=== PATIENT | male | born 1965 | race Caucasian/White ===

== ENCOUNTER 2019-08-02 17:20 | Inpatient (IN) | payer MEDICARE ==
--- NOTE | 2019-08-02 17:26 | PDOC ---
Rapid Medical Evaluation Chief Complaint: Alcohol intoxication Time Seen by Provider: 08/02/19 17:25 Medical Evaluation: Allergies Allergy/AdvReac Type Severity Reaction Status Date / Time No Known Allergies Allergy Verified 12/13/13 18:39 08/02/19 17:25 I have performed a brief in-person evaluation of this patient. The patient presents with a chief complaint of: ETOH intox Pertinent physical exam findings: AOB. No focal deficits. I have ordered the following: nothing The patient will proceed to the ED for further evaluation. Discharge Disposition - Diagnosis Alcohol intoxication - Referrals - Patient Instructions - Post Discharge Activity
[2019-08-02] MEDS ORDERED: SODIUM CHLORIDE 0.9% 500 ML INFUS.BAG IV ONE (19:20)
[2019-08-02] MEDS ORDERED: FOLIC ACID INJECTION - 1 MG, THIAMINE HCL 100 MG, MULTIVIT INJECTION ADULT 10 ML in SOD... IVPB ONE (19:20)
--- NOTE | 2019-08-02 19:28 | PDOC ---
Attending Attestation - Resident Resident Name: TaneshaLivia - ED Attending Attestation I have performed the following: I have examined & evaluated the patient, The case was reviewed & discussed with the resident, I agree w/resident's findings & plan, Exceptions are as noted - HPI HPI: 08/02/19 20:39 54yo male with hx of etoh use. States for the last 2 weeks he has been drinking 12-18 drinks per day. Pt states he needs help stopping etoh use. Pt states he called [facility] and arranged for rehab placement for etoh use, but states he needs to go through detox before he will be accepted. Pt denies SI/HI. Pt denies tremors, but last drink was 4 hours ago. Pt states he feels anxious, but not tremulous. - Physicial Exam PE: 08/02/19 20:41 Gen: aaox3, smell of etoh on his breath heent: mmm, eomi, no tongue fasciculations heart: +s1s2 reg lungs: cta b/l abd: soft, nt/nd +bs ext: no tremors, no c/c/e - Medical Decision Making 08/02/19 20:23 I, Dr. Sherie Newberry, DO, attest that this document has been prepared under my direction and personally reviewed by me in its entirety. I further attest, that it accurately reflects all work, treatment, procedures and medical decision -making performed by me. a/p: 54yo male with etoh use requesting detox -pt has a plan for [facility] rehab after detox and has a bed available -pt requesting detox -las drink was 4 hours ago -drinks 12-18 beers a day -pt denies pain, no falls, no trauma -pt tachy, but no tongue fasciculations or tremors -will send labs, discuss with [facility], will monitor and reassess 08/02/19 20:43 drug screen neg cbc reviewed call placed to [facility] for bed placement 08/02/19 21:07 pt with elevated etoh, but otherwise medically clear to go to detox at [facility] 08/02/19 22:00 no beds available at [facility] pt with tachy and anxiety and etoh withdrawal will microblog [facility] [place] for admission 08/02/19 22:19 resident discussing case with [facility] who accepts pt to service Heart Score/ECG Review - ECG Intrepretation Comment:: 08/02/19 20:43 sinus at 91, nl axis, nl interval, pac, no acute st/t wave findings
[2019-08-02] MEDS ORDERED: chlordiazePOXIDE HCL 25 MG CAPSULE PO ONE ×2 (19:44→21:59)
--- NOTE | 2019-08-02 19:44 | PDOC ---
History of Present Illness - General Chief Complaint: Alcohol intoxication Stated Complaint: INTOXICATED Time Seen by Provider: 08/02/19 17:25 - History of Present Illness Initial Comments: Bryson Guerrero is a 54yo man with no known medical history who presents requesting detox from alcohol. He admits to being intoxicated currently, reporting that he has had "about a 12 pack" of beer today, most recently about 4 -5pm today. He says that he drinks beer "constantly, 20/06" for many years. He used to also use marijuana and cocaine but states that he has not done so for about 5 years. Mr Guerrero reports that he was accepted at rehab at [facility] but was told that he needs to complete detox first for at least 3 days. He endorses shaking and anxiety if he does not drink, but he denies ever having a seizure or hallucinations. Past History - Past Medical History Allergies/Adverse Reactions: Allergies Allergy/AdvReac Type Severity Reaction Status Date / Time No Known Allergies Allergy Verified 08/02/19 17:26 Home Medications: Ambulatory Orders NK [No Known Home Medication] 12/13/13 Anemia: No Asthma: No Cancer: No Cardiac Disorders: No CVA: No COPD: No CHF: No Dementia: No Diabetes: No GI Disorders: No Disorders: No HTN: Yes (no med) Hypercholesterolemia: No Kidney Stones: No Liver Disease: No Seizures: Yes (alcohol related) - Reproductive History Testicular Surgery: No - Suicide/Smoking/Psychosocial Hx Smoking History: Current every day smoker Have you smoked in the past 12 months: Yes Number of Cigarettes Smoked Daily: 10 Cigars Per Day: 0 Information on smoking cessation initiated: No 'Breaking Loose' booklet given: 12/13/13 Hx Alcohol Use: No Drug/Substance Use Hx: No Substance Use Type: Alcohol Hx Substance Use Treatment: No Review of Systems - Review of Systems Comments:: General: No fevers, no chills, no weight or appetite change, no malaise HEENT: No changes in vision, no changes in hearing, no congestion, no sore throat CV: No chest pain, no palpitations, no LE edema Pulm: No SOB, no cough, no wheezing GI: No nausea or vomiting, no change in bowel habits, no melena : No frequency, no urgency, no dysuria Musc: No back pain, no joint swelling, no recent injury Skin: No rash, no lesions, no erythema Endo: No excessive thirst, no heat/cold intolerance Heme: No unusual bruising or bleeding, no swollen glands Neuro: No syncope, no numbness/tingling, no focal weakness Vasc: No claudication Psych: No recent change in mood, no SI or HI *Physical Exam - Vital Signs Last Vital Signs Temp Pulse Resp BP Pulse Ox 98.2 F 103 H 19 177/113 H 97 08/02/19 17:24 08/02/19 17:24 08/02/19 17:24 08/02/19 17:24 08/02/19 17:24 - Physical Exam Comments: General: Comfortable, no acute distress, smells of alcohol HEENT: PERRL, EOMI, MMM, voice normal, atraumatic Cards: RRR, no murmur appreciated Pulm: Comfortable on room air, clear to auscultation bilaterally Abd: Soft, nontender, nondistended Ext: Atraumatic. No LE edema. ROM intact. WWP Skin: Normal color, no rashes or lesions Neuro: A&Ox3, CN grossly intact, normal speech, motor/sensory grossly intact and symmetric. No tremor. No focal deficits Psych: Mood appropriate to situati ED Treatment Course - LABORATORY CBC & Chemistry Diagram: 08/02/19 19:30 08/02/19 19:30 - RADIOLOGY Radiology Studies Ordered: Category Date Time Status CHEST PA & LAT [RAD] Stat Radiology 08/02/19 19:19 Ordered Medical Decision Making - Medical Decision Making 08/02/19 19:38 Bryson Guerrero is a 54yo man with no known medical history who presents requesting detox from alcohol. He reports drinking at least 12 beers daily for "many years" with tremors and anxiety if he does not drink. - Appears acutely intoxicated - Will most likely need admission for medical detox, but does not appear to be acutely withdrawing at this time - CBC, CMP, UA, UDS, alcohol level, EKG, CXR for probable admission either here or at [facility] - IVF - 25mg librium now to prevent acute withdrawal as pt is already tachycardic 08/02/19 20:40 - EKG w/ NSR with PAC, HR 91, normal axis, normal intervals, no concerning t- wave or ST changes - Labs reviewed, unremarkable. Alcohol level pending but UDS otherwise negative - Call to detox to arrange transfer, admitting UNDERWRITING CLERK will call back 08/02/19 21:16 - No beds available at detox - Will send microblog for hospital admission given tachycardia, beginning signs of withdrawal - Continue close monitoring 08/02/19 22:25 - Spoke to Dr Patino. Will accept to med/surg on Dr Begum' service for detox Discussed with Dr Newberry. Livia Almendarez PGY2 *DC/Admit/Observation/Transfer Diagnosis at time of Disposition: Alcohol intoxication Qualifiers: Complication of substance-induced condition: uncomplicated Qualified Code(s): F10.920 - Alcohol use, unspecified with intoxication, uncomplicated Alcohol withdrawal Qualifiers: Complication of substance-induced condition: uncomplicated Qualified Code(s): F10.230 - Alcohol dependence with withdrawal, uncomplicated - Discharge Dispostion Decision to Admit order: Yes - Referrals - Patient Instructions - Post Discharge Activity
[2019-08-02 19:56] LABS: BASO % 0.6 % (0-2.0); EOS % 7.2 % (0-4.5); HEMATOCRIT 45.7 % (35.4-49); HEMOGLOBIN 15.5 GM/dL (11.7-16.9); LYMPH % 23.2 % (8-40); MCH 33.5 pg (25.7-33.7); MCHC 33.8 g/dl (32.0-35.9); MEAN CELL VOLUME 98.9 fl (80-96); MEAN PLT VOLUME 6.6 fl (7.5-11.1); MONO % 7.5 % (3.8-10.2); NEUT % 61.5 % (42.8-82.8); PLATELET COUNT 328 K/MM3 (134-434); RBC 4.62 M/mm3 (4.00-5.60); RDW 13.2 % (11.9-15.9); WHITE BLOOD COUNT 5.6 K/mm3 (4.0-10.0)
[2019-08-02 20:14] LABS: COCAINE, UR NEGATIVE ng/ml (CUTOFF=300); METHADONE, UR NEGATIVE ng/ml (CUTOFF=300); OPIATES, URI NEGATIVE ng/ml (CUTOFF=300); PHENCYCLIDINE,URINE NEGATIVE ng/ml (CUTOFF=25); URINE AMPHETAMINES NEGATIVE ng/ml (CUTOFF=500); URINE BARBITURATES NEGATIVE ng/ml (CUTOFF=200); URINE BENZODIAZEPINES NEGATIVE ng/ml (CUTOFF=200)
[2019-08-02 20:24] LABS: ALBUMIN 4.1 g/dl (3.4-5.0); BILIRUBIN,TOTAL 0.4 mg/dL (0.2-1); BLOOD UREA NITROGEN 7.2 mg/dL (7-18); CALCIUM 9.2 mg/dL (8.5-10.1); CREATININE 0.6 mg/dL (0.55-1.3); POTASSIUM 3.7 mmol/L (3.5-5.1); TOT PROT 8.2 g/dl (6.4-8.2)
[2019-08-02 20:25] LABS: PH,URINE 5.5 (5.0-8.0); URINE APPEARANCE CLEAR; URINE BILIRUBIN NEGATIVE (NEGATIVE); URINE COLOR YELLOW; URINE GLUCOSE (UA) NEGATIVE (NEGATIVE); URINE KETONE NEGATIVE (NEGATIVE); URINE LEUK ESTERASE NEGATIVE (NEGATIVE); URINE NITRITE NEGATIVE (NEGATIVE); URINE PROTEIN NEGATIVE (NEGATIVE); URINE UROBILINOGEN 0.2 mg/dL (0.2-1.0)
[2019-08-02] MEDS ORDERED: chlordiazePOXIDE HCL 25 MG CAPSULE ONE ×2 (20:32→22:00)
[2019-08-02] MEDS ORDERED: chlordiazePOXIDE HCL 25 MG CAPSULE PO SCH (22:00)
[2019-08-02] MEDS ORDERED: chlordiazePOXIDE HCL 10 MG CAPSULE PO PRN (23:34)
[2019-08-03 01:02] VITALS: BMI 24.7
--- NOTE | 2019-08-03 01:07 | HP ---
CHIEF COMPLAINT: Tremors and anxiety following heavy alcohol consumption over the past 6 months. PCP: None HISTORY OF PRESENT ILLNESS: This is a 54 year old male with no significant PMH who presented to the ER with complaints of tremors and anxiety after consuming 12-20x12 oz beers daily over the past 6 months. His last drink was at 10 AM today, when he consumed 4x12oz beers. By noon he began to feels anxious and noted tremors in his hand. He contacted [facility] and was informed that he needed to detox before being admitted, which is why he presented to the [facility] ER. He has no associated complaints of dizziness, light headedness, SOB, chest pain, palpitations, nausea , vomiting, diarrhea, constipation, dysuria, urgency, or hematuria. His last stay at a rehab center was 8 years ago, and his last alcohol related admission was at [place] 2 weeks ago, after he passed out outside following an episode of binge drinking. 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 He states that he is generally stressed in life because of his drinking habits as well as bleak job prospects in the current economy. 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) over 20 years ago Left thumb, work related injury, over 30 years ago Social History: Smoking: Quit 4-5 month ago, smoked 1 pack/week for 7-8 years before that Alcohol: for the past 25 years, intake has increased to 12-20x12 oz beers daily over the past 6 months Drugs: Quit marijuana over 10 years ago, prior to that smoked daily for 20 years Family History: Not aware Allergies No Known Allergies Allergy (Verified 08/02/19 17:26) HOME MEDICATIONS: Home Medications Medication Instructions Recorded NK [No Known Home Medication] 12/13/13 REVIEW OF SYSTEMS CONSTITUTIONAL: Absent: fever, chills, diaphoresis, generalized weakness, malaise, loss of appetite, weight change HEENT: Absent: rhinorrhea, nasal congestion, throat pain, throat swelling, difficulty swallowing, mouth swelling, ear pain, eye pain, visual changes CARDIOVASCULAR: Absent: chest pain, syncope, palpitations, irregular heart rate, lightheadedness , peripheral edema RESPIRATORY: Absent: cough, shortness of breath, dyspnea with exertion, orthopnea, wheezing, stridor, hemoptysis GASTROINTESTINAL: Absent: abdominal pain, abdominal distension, nausea, vomiting, diarrhea, constipation, melena, hematochezia GENITOURINARY: Absent: dysuria, frequency, urgency, hesitancy, hematuria, flank pain, genital pain MUSCULOSKELETAL: Absent: myalgia, arthralgia, joint swelling, back pain, neck pain SKIN: Absent: rash, itching, pallor HEMATOLOGIC/IMMUNOLOGIC: Absent: easy bleeding, easy bruising, lymphadenopathy, frequent infections ENDOCRINE: Absent: unexplained weight gain, unexplained weight loss, heat intolerance, cold intolerance NEUROLOGIC: Absent: headache, focal weakness or paresthesias, dizziness, unsteady gait, seizure, mental status changes, bladder or bowel incontinence PSYCHIATRIC: ANXIETY Absent: anxiety, depression, suicidal or homicidal ideation, hallucinations. PHYSICAL EXAMINATION Vital Signs - 24 hr 08/02/19 08/02/19 08/03/19 17:24 23:31 00:25 Temperature 98.2 F 97.7 F Pulse Rate 103 H 88 Pulse Rate [ 82 Right] Respiratory 19 20 19 Rate Blood Pressure 177/113 H 159/91 Blood Pressure 138/96 [Right Arm] O2 Sat by Pulse 97 98 Oximetry (%) CIWA: 9 (axiety, agitation, no tremors) GENERAL: Awake, alert, and fully oriented,anxious and agitated HEAD: Normal with no signs of trauma. EYES: Pupils equal, round and reactive to light, extraocular movements intact, sclera anicteric, conjunctiva clear. No lid lag. EARS, NOSE, THROAT: Ears normal, nares patent, oropharynx clear without exudates. Moist mucous membranes. NECK: Normal range of motion, supple without lymphadenopathy, JVD, or masses. LUNGS: Breath sounds equal, clear to auscultation bilaterally. No wheezes, and no crackles. No accessory muscle use. HEART: Regular rate and rhythm, normal S1 and S2 without murmur, rub or gallop. ABDOMEN: Soft, nontender, not distended, normoactive bowel sounds, no guarding, no rebound, no masses. No hepatomegaly or splenomegaly. MUSCULOSKELETAL: Normal range of motion at all joints. No bony deformities or tenderness. No CVA tenderness. UPPER EXTREMITIES: 2+ pulses, warm, well-perfused. large scar on the distal and anterior part of the left arm LOWER EXTREMITIES: 2+ pulses, warm, well-perfused. No calf tenderness. No peripheral edema. NEUROLOGICAL: Cranial nerves II-XII intact. Normal speech. Normal gait. PSYCHIATRIC: Cooperative. Decreased eye contact, appears anxious and mildly agitated SKIN: Warm, dry, normal turgor, no rashes or lesions noted, normal capillary refill. Laboratory Results - last 24 hr 08/02/19 08/02/19 08/02/19 19:30 19:30 19:30 WBC 5.6 RBC 4.62 Hgb 15.5 Hct 45.7 MCV 98.9 H MCH 33.5 MCHC 33.8 RDW 13.2 Plt Count 328 D MPV 6.6 L Absolute Neuts (auto) 3.4 Neutrophils % 61.5 Lymphocytes % 23.2 Monocytes % 7.5 Eosinophils % 7.2 H Basophils % 0.6 Nucleated RBC % 0 Sodium 139 Potassium 3.7 Chloride 105 Carbon Dioxide 25 Anion Gap 10 BUN 7.2 Creatinine 0.6 Est GFR (CKD-EPI)AfAm 131.19 Est GFR (CKD-EPI)NonAf 113.19 Random Glucose 90 Calcium 9.2 Total Bilirubin 0.4 AST 33 ALT 32 Alkaline Phosphatase 172 H Total Protein 8.2 Albumin 4.1 Urine Color Yellow Urine Appearance Clear Urine pH 5.5 D Ur Specific [place] 1.003 L Urine Protein Negative Urine Glucose (UA) Negative Urine Ketones Negative Urine Blood Negative Urine Nitrite Negative Urine Bilirubin Negative Urine Urobilinogen 0.2 Ur Leukocyte Esterase Negative Salicylates Opiates Screen Methadone Screen Acetaminophen Barbiturate Screen Phencyclidine Screen Ur Amphetamines Screen MDMA (Ecstasy) Screen Benzodiazepines Screen Cocaine Screen U Marijuana (THC) Screen Alcohol, Quantitative 08/02/19 08/02/19 08/02/19 19:30 19:30 19:38 WBC RBC Hgb Hct MCV MCH MCHC RDW Plt Count MPV Absolute Neuts (auto) Neutrophils % Lymphocytes % Monocytes % Eosinophils % Basophils % Nucleated RBC % Sodium Potassium Chloride Carbon Dioxide Anion Gap BUN Creatinine Est GFR (CKD-EPI)AfAm Est GFR (CKD-EPI)NonAf Random Glucose Calcium Total Bilirubin AST ALT Alkaline Phosphatase Total Protein Albumin Urine Color Urine Appearance Urine pH Ur Specific [place] Urine Protein Urine Glucose (UA) Urine Ketones Urine Blood Urine Nitrite Urine Bilirubin Urine Urobilinogen Ur Leukocyte Esterase Salicylates 3.5 Opiates Screen Negative Methadone Screen Negative Acetaminophen <2.0 Barbiturate Screen Negative Phencyclidine Screen Negative Ur Amphetamines Screen Negative MDMA (Ecstasy) Screen Negative Benzodiazepines Screen Negative Cocaine Screen Negative U Marijuana (THC) Screen Negative Alcohol, Quantitative 319.7 H ASSESSMENT/PLAN: This is a 54 year old male with no significant PMH who presented to the ER with complaints of tremors and anxiety after consuming 12-20x12 oz beers daily over the past 6 months, admitted for alcohol detoxification. CIWA: 9 (axiety, agitation, no tremors) #Alcohol detoxification - Banana bag given in ER - Librium protocol started - Atevan 1mg Q6H PRN added to control excess withdrawal symptoms - Thiamine 200mg IVPB and Folic Acid 1mg daily ordered - Fall, seizure risk implemented #HTN - 177/113 on presentation - Labetolol 200 BID ordered - Continue to monitor #FEN - Na controlled diet - Mg, Phos ordered - RL @ 100 - Regular diet #DVT PE - SCDs Visit type - Emergency Visit Emergency Visit: Yes ED Registration Date: 08/02/19 Care time: The patient presented to the Emergency Department on the above date and was hospitalized for further evaluation of their emergent condition. - New Patient This patient is new to me today: Yes Date on this admission: 08/03/19 - Critical Care Critical Care patient: No ATTENDING PHYSICIAN STATEMENT I saw and evaluated the patient. I reviewed the resident's note and discussed the case with the resident. I agree with the resident's findings and plan as documented. SUBJECTIVE: OBJECTIVE: ASSESSMENT AND PLAN:
[2019-08-03] MEDS ORDERED: LORazepam 2 MG/ML SDV VIAL IVPUSH PRN ×2 (01:59→05:44)
[2019-08-03] MEDS ORDERED: HEPARIN NA (PORCINE) 5,000 UNITS/ML 1ML VIAL SQ SCH (02:00)
--- NOTE | 2019-08-03 02:17 | PN ---
Teaching Attending Note Name of Resident: Alex Harris ATTENDING PHYSICIAN STATEMENT I saw and evaluated the patient. Chart, data reviewed. I reviewed the resident's note and discussed the case with the resident. I agree with the resident's findings and plan as documented. SUBJECTIVE: 54yo man with etoh abuse d/o presented requesting detox, drinks at least 12 beers a day but not much liquor. Denied any illicit drug abuse. No other complaints. Has been drinking regularly for last 3 months. OBJECTIVE: Last Vital Signs Temp Pulse Resp BP Pulse Ox 97.7 F 82 19 138/96 98 08/02/19 23:31 08/03/19 00:25 08/03/19 00:25 08/03/19 00:25 08/03/19 00:25 general -olga complexion heent - sclera noninjected neck supple cor -s1+s2+rrr chest clear abd- soft nt Abnormal Lab Results 08/02/19 08/02/19 08/02/19 19:30 19:30 19:30 MCV 98.9 H MPV 6.6 L Eosinophils % 7.2 H Alkaline Phosphatase 172 H Ur Specific [place] 1.003 L Alcohol, Quantitative 08/02/19 19:30 MCV MPV Eosinophils % Alkaline Phosphatase Ur Specific [place] Alcohol, Quantitative 319.7 H cxr showed flattened diaphragms ASSESSMENT AND PLAN: #etoh abuse for detox, impending withdrawal -admit to med/surg -librium detox protocol -banana bag -IV fluid hydration -ciwa protocol -send mg level and replace if low -detox after d/c -regular diet #dvt ppx -scds
[2019-08-03] MEDS: LACTATED RINGERS SOLUTION 1,000 ML/1,000 ML INFUS.BAG IV SCH (02:38)
[2019-08-03] MEDS ORDERED: chlordiazePOXIDE HCL 25 MG CAPSULE PO SCH (05:00)
[2019-08-03] MEDS: chlordiazePOXIDE HCL 25 MG CAPSULE PO SCH ×3 (05:13→20:41)
[2019-08-03] MEDS: SODIUM CHLORIDE 1,000 ML IV SCH ×2 (06:06→17:49)
[2019-08-03 07:13] LABS: BASO % 0.4 % (0-2.0); EOS % 6.4 % (0-4.5); HEMATOCRIT 41.6 % (35.4-49); HEMOGLOBIN 14.2 GM/dL (11.7-16.9); LYMPH % 13.7 % (8-40); MCH 33.8 pg (25.7-33.7); MCHC 34.3 g/dl (32.0-35.9); MEAN CELL VOLUME 98.6 fl (80-96); MEAN PLT VOLUME 6.8 fl (7.5-11.1); MONO % 9.3 % (3.8-10.2); NEUT % 70.2 % (42.8-82.8); PLATELET COUNT 260 K/MM3 (134-434); RBC 4.22 M/mm3 (4.00-5.60); RDW 13.1 % (11.9-15.9); WHITE BLOOD COUNT 5.5 K/mm3 (4.0-10.0)
[2019-08-03 07:34] LABS: ALBUMIN 3.6 g/dl (3.4-5.0); BILIRUBIN,TOTAL 0.6 mg/dL (0.2-1); BLOOD UREA NITROGEN 8.8 mg/dL (7-18); CALCIUM 8.9 mg/dL (8.5-10.1); CREATININE 0.7 mg/dL (0.55-1.3); MAGNESIUM 1.8 mg/dL (1.8-2.4); POTASSIUM 3.7 mmol/L (3.5-5.1)
[2019-08-03] MEDS ORDERED: LABETALOL HCL 200 MG TABLET (FP) PO SCH (10:00)
[2019-08-03] MEDS ORDERED: THIAMINE HCL 200 MG/2 ML VIAL IVPB SCH (10:00)
[2019-08-03] MEDS: FOLIC ACID 1 MG TABLET (FP) PO SCH (11:17)
--- NOTE | 2019-08-03 14:08 | EKG ---
Test Reason : Blood Pressure : / mmHG Vent. Rate : 091 BPM Atrial Rate : 091 BPM P-R Int : 144 ms QRS Dur : 090 ms QT Int : 350 ms P-R-T Axes : 050 031 025 degrees QTc Int : 430 ms SINUS RHYTHM WITH PREMATURE ATRIAL COMPLEXES NO PREVIOUS ECGS AVAILABLE Confirmed by AYAKA GARCIA MD ([id number]) on 08/03/2019 2:08:23 PM Referred By: Confirmed By:AYAKA GARCIA MD
--- NOTE | 2019-08-03 17:39 | PN ---
Physical Exam: SUBJECTIVE: Patient seen and examined at the bedside, appeared anxious and stated he was feeling very anxious. Otherwise there were no acute events overnight. OBJECTIVE: Vital Signs Period Temp Pulse Resp BP Sys/Berrios Pulse Ox Last 24 Hr 97.7 F-98.0 F 82-92 19-20 138-159/84-96 98 CIWA: 9 (axiety, agitation, no tremors) GENERAL: Awake, alert, and fully oriented,anxious and agitated HEAD: Normal with no signs of trauma. EYES: Pupils equal, round and reactive to light, extraocular movements intact, sclera anicteric, conjunctiva clear. No lid lag. EARS, NOSE, THROAT: Ears normal, nares patent, oropharynx clear without exudates. Moist mucous membranes. NECK: Normal range of motion, supple without lymphadenopathy, JVD, or masses. LUNGS: Breath sounds equal, clear to auscultation bilaterally. No wheezes, and no crackles. No accessory muscle use. HEART: Regular rate and rhythm, normal S1 and S2 without murmur, rub or gallop. ABDOMEN: Soft, nontender, not distended, normoactive bowel sounds, no guarding, no rebound, no masses. No hepatomegaly or splenomegaly. MUSCULOSKELETAL: Normal range of motion at all joints. No bony deformities or tenderness. UPPER EXTREMITIES: 2+ pulses, warm, well-perfused. large scar on the distal and anterior part of the left arm LOWER EXTREMITIES: 2+ pulses, warm, well-perfused. No peripheral edema. NEUROLOGICAL: Cranial nerves II-XII intact. Normal speech. Normal gait, no tremor, no asterixis, no nystagmus, good cerebellar coordination PSYCHIATRIC: Cooperative. Decreased eye contact, appears anxious and mildly agitated SKIN: Warm, dry, normal turgor, no rashes or lesions noted, normal capillary refill. Laboratory Results - last 24 hr 08/02/19 08/02/19 08/02/19 19:30 19:30 19:30 WBC 5.6 RBC 4.62 Hgb 15.5 Hct 45.7 MCV 98.9 H MCH 33.5 MCHC 33.8 RDW 13.2 Plt Count 328 D MPV 6.6 L Absolute Neuts (auto) 3.4 Neutrophils % 61.5 Lymphocytes % 23.2 Monocytes % 7.5 Eosinophils % 7.2 H Basophils % 0.6 Nucleated RBC % 0 Sodium 139 Potassium 3.7 Chloride 105 Carbon Dioxide 25 Anion Gap 10 BUN 7.2 Creatinine 0.6 Est GFR (CKD-EPI)AfAm 131.19 Est GFR (CKD-EPI)NonAf 113.19 Random Glucose 90 Calcium 9.2 Phosphorus Magnesium Total Bilirubin 0.4 AST 33 ALT 32 Alkaline Phosphatase 172 H Total Protein 8.2 Albumin 4.1 TSH Urine Color Yellow Urine Appearance Clear Urine pH 5.5 D Ur Specific [place] 1.003 L Urine Protein Negative Urine Glucose (UA) Negative Urine Ketones Negative Urine Blood Negative Urine Nitrite Negative Urine Bilirubin Negative Urine Urobilinogen 0.2 Ur Leukocyte Esterase Negative Salicylates Opiates Screen Methadone Screen Acetaminophen Barbiturate Screen Phencyclidine Screen Ur Amphetamines Screen MDMA (Ecstasy) Screen Benzodiazepines Screen Cocaine Screen U Marijuana (THC) Screen Alcohol, Quantitative 08/02/19 08/02/19 08/02/19 19:30 19:30 19:38 WBC RBC Hgb Hct MCV MCH MCHC RDW Plt Count MPV Absolute Neuts (auto) Neutrophils % Lymphocytes % Monocytes % Eosinophils % Basophils % Nucleated RBC % Sodium Potassium Chloride Carbon Dioxide Anion Gap BUN Creatinine Est GFR (CKD-EPI)AfAm Est GFR (CKD-EPI)NonAf Random Glucose Calcium Phosphorus Magnesium Total Bilirubin AST ALT Alkaline Phosphatase Total Protein Albumin TSH Urine Color Urine Appearance Urine pH Ur Specific [place] Urine Protein Urine Glucose (UA) Urine Ketones Urine Blood Urine Nitrite Urine Bilirubin Urine Urobilinogen Ur Leukocyte Esterase Salicylates 3.5 Opiates Screen Negative Methadone Screen Negative Acetaminophen <2.0 Barbiturate Screen Negative Phencyclidine Screen Negative Ur Amphetamines Screen Negative MDMA (Ecstasy) Screen Negative Benzodiazepines Screen Negative Cocaine Screen Negative U Marijuana (THC) Screen Negative Alcohol, Quantitative 319.7 H 08/03/19 08/03/19 06:00 06:16 WBC 5.5 RBC 4.22 Hgb 14.2 Hct 41.6 MCV 98.6 H MCH 33.8 H MCHC 34.3 RDW 13.1 Plt Count 260 D MPV 6.8 L Absolute Neuts (auto) 3.8 Neutrophils % 70.2 Lymphocytes % 13.7 D Monocytes % 9.3 Eosinophils % 6.4 H Basophils % 0.4 Nucleated RBC % 0 Sodium 141 Potassium 3.7 Chloride 103 Carbon Dioxide 26 Anion Gap 12 BUN 8.8 Creatinine 0.7 Est GFR (CKD-EPI)AfAm 123.13 Est GFR (CKD-EPI)NonAf 106.24 Random Glucose 85 Calcium 8.9 Phosphorus 3.0 Magnesium 1.8 Total Bilirubin 0.6 AST 31 ALT 31 Alkaline Phosphatase 146 H Total Protein 7.0 Albumin 3.6 TSH 5.51 H Urine Color Urine Appearance Urine pH Ur Specific [place] Urine Protein Urine Glucose (UA) Urine Ketones Urine Blood Urine Nitrite Urine Bilirubin Urine Urobilinogen Ur Leukocyte Esterase Salicylates Opiates Screen Methadone Screen Acetaminophen Barbiturate Screen Phencyclidine Screen Ur Amphetamines Screen MDMA (Ecstasy) Screen Benzodiazepines Screen Cocaine Screen U Marijuana (THC) Screen Alcohol, Quantitative Active Medications Generic Name Dose Route Start Last Admin Trade Name Freq PRN Reason Stop Dose Admin Chlordiazepoxide HCl 10 mg 08/04/19 00:00 Librium - PO 08/04/19 23:59 Q12H PRN Signs/symptoms of Withdrawal Chlordiazepoxide HCl 10 mg 08/02/19 23:34 Librium - PO 08/03/19 23:59 Q8H PRN Signs/symptoms of Withdrawal Chlordiazepoxide HCl 15 mg 08/04/19 05:00 Librium - PO 08/04/19 21:01 Q8H FAMILIA Chlordiazepoxide HCl 10 mg 08/05/19 05:00 Librium - PO 08/05/19 21:01 Q8H FAMILIA Chlordiazepoxide HCl 10 mg 08/06/19 05:00 Librium - PO 08/06/19 05:01 ONCE ONE Chlordiazepoxide HCl 25 mg 08/03/19 05:00 08/03/19 12:59 Librium - PO 08/03/19 21:01 25 mg Q8H FAMILIA Administration Folic Acid 1 mg 08/03/19 10:00 08/03/19 11:17 Folic Acid - PO 1 mg DAILY FAMILIA Administration Lactated Ringer's 1,000 ml in 1,000 mls @ 100 mls/hr 08/03/19 02:15 08/03/19 02:38 Lactated Ringers Solution IV 100 mls/hr ASDIR FAMILIA Administration Sodium Chloride 1,000 mls @ 100 mls/hr 08/03/19 05:45 08/03/19 06:06 Normal Saline - IV 100 mls/hr ASDIR FAMILIA Administration Lorazepam 1 mg 08/03/19 05:44 Ativan Injection - IVPUSH Q4H PRN WITHDRAWAL(CONT SUBST) Thiamine HCl 200 mg 08/03/19 10:00 08/03/19 11:17 Vitamin B1 Injection - IVPB 200 mg DAILY FAMILIA Administration ASSESSMENT/PLAN: This is a 54 year old male with no significant PMH who presented to the ER with complaints of tremors and anxiety after consuming 12-20x12 oz beers daily over the past 6 months, admitted for alcohol detoxification. #Alcohol detoxification - CIWA: 9 (axiety, agitation, no tremors) - Continue Librium protocol - PO thiamine - Continue folate - Continue IV fluids - Fall, seizure risk implemented #HTN- most likely due to withdrawal - D/C HTN meds - Continue to monitor bps #FEN - Na controlled diet - Mg, Phos ordered - RL @ 100 - Regular diet #DVT ppx - lovenos #Dispo: pending avalability of detox bed at [facility] Visit type - Emergency Visit Emergency Visit: Yes ED Registration Date: 08/02/19 Care time: The patient presented to the Emergency Department on the above date and was hospitalized for further evaluation of their emergent condition. - New Patient This patient is new to me today: Yes Date on this admission: 08/03/19 - Critical Care Critical Care patient: No - Discharge Referral Referred to [facility] Med [facility].C[facility] No ATTENDING PHYSICIAN STATEMENT I saw and evaluated the patient. I reviewed the resident's note and discussed the case with the resident. I agree with the resident's findings and plan as documented. SUBJECTIVE: OBJECTIVE: ASSESSMENT AND PLAN:
--- NOTE | 2019-08-03 17:45 | PN ---
Teaching Attending Note Name of Resident: Michell Gregorio ATTENDING PHYSICIAN STATEMENT I saw and evaluated the patient. I reviewed the resident's note and discussed the case with the resident. I agree with the resident's findings and plan as documented. SUBJECTIVE: no fever or chills. No PEGUERO . no CP or SOB . feels a little better OBJECTIVE: NAD, slightly anxious . AAox3 Cv : RRR, no MRG Lungs : CTAB No edema . slight tremor of the hands ASSESSMENT AND PLAN: 54 y/o man with h/o ETOH use who presented with withdrawal sx 1- ETOH withdrawal: - cont librium protocol - change thiamine to po - cont folate - No signs of Wernicke's - cont IVF 2- HTN , due to withdrawal . hold off any HTN meds and monitor with detox. DVT PX : start lovenox
[2019-08-04] MEDS ORDERED: chlordiazePOXIDE HCL 10 MG CAPSULE PO PRN
[2019-08-04] MEDS: SODIUM CHLORIDE 1,000 ML IV SCH ×2 (05:34→16:49)
[2019-08-04] MEDS: chlordiazePOXIDE 5 MG CAPSULE PO SCH ×3 (05:35→21:39)
[2019-08-04] MEDS: LACTATED RINGERS SOLUTION 1,000 ML/1,000 ML INFUS.BAG IV SCH (05:35)
[2019-08-04 10:28] LABS: HEMATOCRIT 41.6 % (35.4-49); HEMOGLOBIN 14.4 GM/dL (11.7-16.9); MCH 34.1 pg (25.7-33.7); MCHC 34.7 g/dl (32.0-35.9); MEAN CELL VOLUME 98.5 fl (80-96); MEAN PLT VOLUME 7.2 fl (7.5-11.1); PLATELET COUNT 232 K/MM3 (134-434); RBC 4.23 M/mm3 (4.00-5.60); RDW 12.7 % (11.9-15.9); WHITE BLOOD COUNT 4.8 K/mm3 (4.0-10.0)
[2019-08-04] MEDS: ENOXAPARIN NA (PORCINE) 40 MG/0.4 ML DISP.SYRIN SQ SCH ×2 (10:33→10:37)
[2019-08-04] MEDS: FOLIC ACID 1 MG TABLET (FP) PO SCH (10:33)
[2019-08-04] MEDS: THIAMINE HCL 100 MG TABLET (FP) PO SCH (10:33)
[2019-08-04 10:56] LABS: ALBUMIN 3.3 g/dl (3.4-5.0); BILIRUBIN,TOTAL 0.8 mg/dL (0.2-1); BLOOD UREA NITROGEN 12.2 mg/dL (7-18); CREATININE 0.8 mg/dL (0.55-1.3); MAGNESIUM 1.8 mg/dL (1.8-2.4); PHOSPHOROUS 2.7 mg/dL (2.5-4.9); POTASSIUM 4.1 mmol/L (3.5-5.1); TOT PROT 6.9 g/dl (6.4-8.2)
--- NOTE | 2019-08-04 14:41 | PN ---
Teaching Attending Note Name of Resident: Chayito Garcia ATTENDING PHYSICIAN STATEMENT I saw and evaluated the patient. I reviewed the resident's note and discussed the case with the resident. I agree with the resident's findings and plan as documented. SUBJECTIVE: No fever or chills. No PEGUERO. no abd pain. OBJECTIVE: NAD. AAox3 Cv : RRR, no MRG Lungs : CTAB No edema . slight tremor of the hands ASSESSMENT AND PLAN: 54 y/o man with h/o ETOH use who presented with withdrawal sx 1- ETOH withdrawal: - cont librium protocol - cont thiamine and folate - cont IVF 2- Abd tenderness in RUQ , per resident's exam. - US of abd 3- elevated bP , due to withdrawal.normalized with withdrawal treatment DVT PX: cont lovenox
[2019-08-05] MEDS: SODIUM CHLORIDE 1,000 ML IV SCH (05:02)
[2019-08-05] MEDS ORDERED: chlordiazePOXIDE 5 MG CAPSULE ONE ×3 (05:08→21:46)
[2019-08-05] MEDS: chlordiazePOXIDE HCL 10 MG CAPSULE PO SCH ×3 (05:09→21:51)
[2019-08-05] MEDS: LACTATED RINGERS SOLUTION 1,000 ML/1,000 ML INFUS.BAG IV SCH (08:06)
[2019-08-05 08:15] LABS: HEMATOCRIT 43.1 % (35.4-49); HEMOGLOBIN 14.6 GM/dL (11.7-16.9); MCH 34.1 pg (25.7-33.7); MCHC 33.9 g/dl (32.0-35.9); MEAN CELL VOLUME 100.4 fl (80-96); MEAN PLT VOLUME 7.2 fl (7.5-11.1); PLATELET COUNT 240 K/MM3 (134-434); RBC 4.29 M/mm3 (4.00-5.60); RDW 12.8 % (11.9-15.9); WHITE BLOOD COUNT 6.4 K/mm3 (4.0-10.0)
[2019-08-05 08:36] LABS: ALBUMIN 3.5 g/dl (3.4-5.0); BILIRUBIN,TOTAL 0.8 mg/dL (0.2-1); BLOOD UREA NITROGEN 12.2 mg/dL (7-18); CALCIUM 9.4 mg/dL (8.5-10.1); CREATININE 0.7 mg/dL (0.55-1.3); POTASSIUM 4.6 mmol/L (3.5-5.1); TOT PROT 7.1 g/dl (6.4-8.2)
[2019-08-05] MEDS: THIAMINE HCL 100 MG TABLET (FP) PO SCH (10:52)
[2019-08-05] MEDS: ENOXAPARIN NA (PORCINE) 40 MG/0.4 ML DISP.SYRIN SQ SCH (10:52)
[2019-08-05] MEDS: FOLIC ACID 1 MG TABLET (FP) PO SCH (10:52)
--- NOTE | 2019-08-05 16:02 | PN ---
Progress Note (short form) - Note Progress Note: Subjective: has RUQ pain. no fever or chills. No N/V. feels down but no thoughts of hurting himself Objective: Vital Signs: Last Vital Signs Temp Pulse Resp BP Pulse Ox 97.8 F 83 18 140/78 98 08/05/19 13:22 08/05/19 13:22 08/05/19 13:22 08/05/19 13:22 08/05/19 09:00 Laboratory Results - last 24 hr 08/05/19 08/05/19 07:35 07:35 WBC 6.4 RBC 4.29 Hgb 14.6 Hct 43.1 MCV 100.4 H MCH 34.1 H MCHC 33.9 RDW 12.8 Plt Count 240 MPV 7.2 L Sodium 138 Potassium 4.6 Chloride 106 Carbon Dioxide 25 Anion Gap 7 L BUN 12.2 Creatinine 0.7 Est GFR (CKD-EPI)AfAm 123.13 Est GFR (CKD-EPI)NonAf 106.24 Random Glucose 90 Calcium 9.4 Total Bilirubin 0.8 AST 20 ALT 26 Alkaline Phosphatase 140 H Total Protein 7.1 Albumin 3.5 Physical Exam: NAD. AAox3 Cv : RRR, no MRG Lungs: CTAB Abd: soft, ND, TTP in RUQ. no guarding. No edema. slight tremor of the hands ASSESSMENT AND PLAN: 54 y/o man with h/o ETOH use who presented with withdrawal sx 1- ETOH withdrawal: - cont librium protocol - cont thiamine and folate - cont IVF 2- Abd tenderness in RUQ : - US of abd with no gall stones and no evidence of cholecystitis - LFTS are normal except Alkphos. no fever , or N/V. tolerating diet - no further w/u 3- Elevated bP , due to withdrawal. improved. out pt monitoring DVT PX: cont lovenox Visit type - Emergency Visit Emergency Visit: Yes ED Registration Date: 08/02/19 Care time: The patient presented to the Emergency Department on the above date and was hospitalized for further evaluation of their emergent condition. - New Patient This patient is new to me today: No - Critical Care Critical Care patient: No
--- NOTE | 2019-08-05 21:10 | PN ---
Physical Exam: SUBJECTIVE: Patient seen and examined at the bedside, there were no acute events overnight. Patient would like to shower today. OBJECTIVE: Vital Signs Period Temp Pulse Resp BP Sys/Berrios Pulse Ox Last 24 Hr 97.7 F-98.2 F 72-85 18-18 121-147/78-94 98-98 GENERAL: Awake, alert, and fully oriented,anxious and agitated HEAD: Normal with no signs of trauma. EYES: Pupils equal, round and reactive to light, extraocular movements intact, sclera anicteric, conjunctiva clear. No lid lag. EARS, NOSE, THROAT: Ears normal, nares patent, oropharynx clear without exudates. Moist mucous membranes. NECK: Normal range of motion, supple without lymphadenopathy, JVD, or masses. LUNGS: Breath sounds equal, clear to auscultation bilaterally. No wheezes, and no crackles. No accessory muscle use. HEART: Regular rate and rhythm, normal S1 and S2 without murmur, rub or gallop. ABDOMEN: Soft, tender to palpation in RUQ with positive Jones's sign, not distended, normoactive bowel sounds, guarding in RUQ, no rebound, no masses. MUSCULOSKELETAL: Normal range of motion at all joints. No bony deformities or tenderness. UPPER EXTREMITIES: 2+ pulses, warm, well-perfused. large scar on the distal and anterior part of the left arm LOWER EXTREMITIES: 2+ pulses, warm, well-perfused. No peripheral edema. NEUROLOGICAL: Cranial nerves II-XII intact. Normal speech. Normal gait, no tremor, no asterixis, no nystagmus, good cerebellar coordination PSYCHIATRIC: Cooperative. Decreased eye contact, appears anxious and mildly agitated SKIN: Warm, dry, normal turgor, no rashes or lesions noted, normal capillary refill. Laboratory Results - last 24 hr 08/05/19 08/05/19 07:35 07:35 WBC 6.4 RBC 4.29 Hgb 14.6 Hct 43.1 MCV 100.4 H MCH 34.1 H MCHC 33.9 RDW 12.8 Plt Count 240 MPV 7.2 L Sodium 138 Potassium 4.6 Chloride 106 Carbon Dioxide 25 Anion Gap 7 L BUN 12.2 Creatinine 0.7 Est GFR (CKD-EPI)AfAm 123.13 Est GFR (CKD-EPI)NonAf 106.24 Random Glucose 90 Calcium 9.4 Total Bilirubin 0.8 AST 20 ALT 26 Alkaline Phosphatase 140 H Total Protein 7.1 Albumin 3.5 Active Medications Generic Name Dose Route Start Last Admin Trade Name Freq PRN Reason Stop Dose Admin Chlordiazepoxide HCl 10 mg 08/06/19 05:00 Librium - PO 08/06/19 05:01 ONCE ONE Enoxaparin Sodium 40 mg 08/04/19 10:00 08/05/19 10:52 Lovenox - SQ Not Given DAILY FAMILIA Folic Acid 1 mg 08/03/19 10:00 08/05/19 10:52 Folic Acid - PO 1 mg DAILY FAMILIA Administration Lactated Ringer's 1,000 ml in 1,000 mls @ 100 mls/hr 08/03/19 02:15 08/05/19 08:06 Lactated Ringers Solution IV Not Given ASDIR FAMILIA Sodium Chloride 1,000 mls @ 100 mls/hr 08/03/19 05:45 08/05/19 05:02 Normal Saline - IV 100 mls/hr ASDIR FAMILIA Administration Lorazepam 1 mg 08/03/19 05:44 Ativan Injection - IVPUSH Q4H PRN WITHDRAWAL(CONT SUBST) Thiamine HCl 100 mg 08/04/19 10:00 08/05/19 10:52 Vitamin B1 - PO 100 mg DAILY FAMILIA Administration ASSESSMENT/PLAN: This is a 54 year old male with no significant PMH who presented to the ER with complaints of tremors and anxiety after consuming 12-20x12 oz beers daily over the past 6 months, admitted for alcohol detoxification. #Alcohol detoxification - CIWA: 9 (axiety, agitation, no tremors) - Continue Librium protocol - PO thiamine - Continue folate - Continue IV fluids - Fall, seizure risk implemented #HTN- most likely due to withdrawal - D/C HTN meds - Continue to monitor bps # Abdominal Pain- patient endorsing RUQ abdominal pain with + jones's this morning - RUQ u/s #FEN - Na controlled diet - Mg, Phos ordered - RL @ 100 - Regular diet #DVT ppx - lovenos #Dispo: pending avalability of detox bed at [facility] Visit type - Emergency Visit Emergency Visit: Yes ED Registration Date: 08/02/19 Care time: The patient presented to the Emergency Department on the above date and was hospitalized for further evaluation of their emergent condition. - New Patient This patient is new to me today: No - Critical Care Critical Care patient: No - Discharge Referral Referred to [facility] Med P.C.: No ATTENDING PHYSICIAN STATEMENT I saw and evaluated the patient. I reviewed the resident's note and discussed the case with the resident. I agree with the resident's findings and plan as documented. SUBJECTIVE: OBJECTIVE: ASSESSMENT AND PLAN:
[2019-08-06] MEDS ORDERED: chlordiazePOXIDE HCL 10 MG CAPSULE PO ONE (05:00)
[2019-08-06 05:41] VITALS: BP 136/80; PULSE 66; TEMP 97.7
[2019-08-06] MEDS ORDERED: chlordiazePOXIDE 5 MG CAPSULE ONE (05:42)
[2019-08-06] MEDS: LACTATED RINGERS SOLUTION 1,000 ML/1,000 ML INFUS.BAG IV SCH (05:43)
[2019-08-06] MEDS: FOLIC ACID 1 MG TABLET (FP) PO SCH (10:21)
[2019-08-06] MEDS: THIAMINE HCL 100 MG TABLET (FP) PO SCH (10:21)
[2019-08-06] MEDS: SODIUM CHLORIDE 1,000 ML IV SCH (10:23)
[2019-08-06] MEDS: ENOXAPARIN NA (PORCINE) 40 MG/0.4 ML DISP.SYRIN SQ SCH (10:23)
--- NOTE | 2019-08-06 11:41 | DS ---
Physical Exam: SUBJECTIVE: Patient seen and examined at the [facility], no acute events overnight. Patient still with mild abdominal pain, improved from yesterday. OBJECTIVE: Vital Signs Period Temp Pulse Resp BP Sys/Berrios Pulse Ox Last 24 Hr 97.7 F-98.2 F 66-85 18-18 136-147/78-94 PHYSICAL EXAM GENERAL: Awake, alert, and fully oriented,anxious and agitated HEAD: Normal with no signs of trauma. EYES: Pupils equal, round and reactive to light, extraocular movements intact, sclera anicteric, conjunctiva clear. No lid lag. EARS, NOSE, THROAT: Ears normal, nares patent, oropharynx clear without exudates. Moist mucous membranes. NECK: Normal range of motion, supple without lymphadenopathy, JVD, or masses. LUNGS: Breath sounds equal, clear to auscultation bilaterally. No wheezes, and no crackles. No accessory muscle use. HEART: Regular rate and rhythm, normal S1 and S2 without murmur, rub or gallop. ABDOMEN: Soft, tender to palpation in RUQ with positive Jones's sign, not distended, normoactive bowel sounds, guarding in RUQ, no rebound, no masses. MUSCULOSKELETAL: Normal range of motion at all joints. No bony deformities or tenderness. UPPER EXTREMITIES: 2+ pulses, warm, well-perfused. large scar on the distal and anterior part of the left arm LOWER EXTREMITIES: 2+ pulses, warm, well-perfused. No peripheral edema. NEUROLOGICAL: Cranial nerves II-XII intact. Normal speech. Normal gait, no tremor, no asterixis, no nystagmus, good cerebellar coordination PSYCHIATRIC: Cooperative. Decreased eye contact, appears anxious and mildly agitated SKIN: Warm, dry, normal turgor, no rashes or lesions noted, normal capillary refill. . LABS HOSPITAL COURSE: Date of Admission:08/02/19 This is a 54 year old male with no significant PMH who presented to the ER with complaints of tremors and anxiety after consuming 12-20x12 oz beers daily over the past 6 months, admitted for alcohol detoxification. He was given thiamine, folate, IV fluids, and was placed on a Librium protocol. On 08/04 the patient had new RUQ abdominal pain and was given a RUQ ultrasound which showed fatty infiltrates but no acute pathology. The patient's hospital course was uncomplicated and he was discharged with plans to [facility]. Date of Discharge: 08/06/19 Minutes to complete discharge: 40 Discharge Summary Reason For Visit: ALCOHOL WITHDRAWAL SYNDROME Condition: Improved - Instructions Diet, Activity, Other Instructions: You were hospitalized to monitor you for alcohol withdrawal. While in the hospital you were detoxed and did not have any complications. You received IV fluids, folate, thiamine, and librium. You are now ready to be discharged with plans to start inpatient rehab at [facility]. Please continue to take any home medications as prescribed Please follow up with your primary care doctor within 1 week of discharge. We are including a referral here to Dr. Weber at our primary care clinic incase you do not have a primary care provider. Dr. Weber - [phone], [address] ask fro appointment with Dr. Gregorio Please return to the ED immediately if you have nausea, vomiting, seizures, chest pains or shortness of breath. Referrals: Woodrow Weber MD [Staff Physician] - 1 Week Disposition: HOME - Home Medications Comprehensive Discharge Medication List: Ambulatory Orders Folic Acid 1 mg PO DAILY #30 tablet 08/06/19 Thiamine HCl [B-1] 100 mg PO DAILY #30 tablet 08/06/19 This patient is new to me today: No Emergency Visit: Yes ED Registration Date: 08/02/19 Care time: The patient presented to the Emergency Department on the above date and was hospitalized for further evaluation of their emergent condition. Critical Care patient: No - Discharge Referral Referred to [facility] No ATTENDING PHYSICIAN STATEMENT I saw and evaluated the patient. I reviewed the resident's note and discussed the case with the resident. I agree with the resident's findings and plan as documented. SUBJECTIVE: OBJECTIVE: ASSESSMENT AND PLAN:
--- NOTE | 2019-08-06 17:35 | PN ---
Teaching Attending Note Name of Resident: Michell Gregorio ATTENDING PHYSICIAN STATEMENT I saw and evaluated the patient. I reviewed the resident's note and discussed the case with the resident. I agree with the resident's findings and plan as documented. SUBJECTIVE: no fever , no N/V. no abd pain but some discomfort . No diarrhea OBJECTIVE: NAD. AAox3 Cv : RRR, no MRG Lungs: CTAB Abd: soft, ND,minimal dicomfort with palpating the RUQ . Nl BS No edema.No tremor ASSESSMENT AND PLAN: 54 y/o man with h/o ETOH use who presented with withdrawal sx 1- ETOH withdrawal: - finished librium protocol - cont thiamine and folate - dc IVF 2- Abd tenderness in RUQ : - No evidence of stones or cholecystitis . instructed to follow with PCP ( referred to Dr. Weber) 3- Elevated bP , due to withdrawal.resolved with treatment of WD DC home
== END 2019-08-06 12:54 | disposition home or self-care (01) | DRG 775 ==
LOC: JER 17:20 → JERBED 21:40 → J6S 08-03 00:52
PROVIDERS: ADMIT Internal Medicine; ATTEND Internal Medicine
PROC: HZ2ZZZZ Detoxification Services for Substance Abuse Treatment (ICD-10-PCS; principal; 2019-08-02)
DX: F10.239 Alcohol dependence with withdrawal, unspecified (principal); R00.0 Tachycardia, unspecified; F41.9 Anxiety disorder, unspecified; F10.220 Alcohol dependence with intoxication, uncomplicated; F10.229 Alcohol dependence with intoxication, unspecified; F17.210 Nicotine dependence, cigarettes, uncomplicated; R03.0 Elevated blood-pressure reading, without diagnosis of hypertension; Y90.8 Blood alcohol level of 240 mg/100 ml or more; R10.9 Unspecified abdominal pain
CPT/HCPCS: 36415; 71046-TC-FY; 76705-TC; 80053; 80307; 81003; 83735; 84100; 84443; 85025; 85027; 93005; 93010; 97116-GP; 97161-GP; 99284-25; J1644; J7030